=== PATIENT | female | born 1995 | race Caucasian/White ===

== ENCOUNTER 2022-03-02 01:11 | Emergency (ER) | payer MEDICAID, SELFPAY ==
[2022-03-02 01:12] VITALS: BP 113/87; PULSE 98; RESP 18; TEMP 36.2; O2SAT 100; BMI 32.5
[2022-03-02 01:14] VITALS: O2SAT 98
--- NOTE | 2022-03-02 01:22 | EX.ED.GENINJ ---
HPI History of Present Illness Chief Complaint: Fall Narrative Narrative: 26-year-old female here for left wrist pain. States she stumbled on her steps and caught herself with her left hand injuring her left wrist. States the pain is constant, severe without alleviating exacerbating features. PFSH PFSH Home Medications medroxyprogesterone 150 mg/mL intramuscular syringe 07/30/14 [History Last Taken Unknown] Allergy/AdvReac Type Severity Reaction Status Date / Time No Known Allergies Allergy Verified 03/02/22 01:12 Social History Smoking Status: Current every day smoker tobacco type: cigarettes ROS ROS ED Eyes Eyes: Denies other visual disturbances ENT ENT ED: Denies ear pain Cardiovascular Cardiovascular: Denies chest pain Respiratory/Chest Respiratory/Chest: Denies dyspnea Gastrointestinal Gastrointestinal: Denies abdominal pain Genitourinary Genitourinary ED: Denies dysuria Musculoskeletal Musculoskeletal: Reports arthralgias Integumentary Denies rash Neurologic Neurologic: Denies dizziness, focal weakness, numbness, syncope or weakness Psychiatric Psychiatric: Denies homicidal ideation or suicidal ideation EXAM Physical Exam Narrative Exam Narrative: Nursing triage notes reviewed, Vital signs reviewed Constitutional: please see mdm HENT: MMM Eyes: Pupils equal round and reactive to light, Extraocular muscles intact Neck: No stridor, no JVD, full neck ROM Lungs: Clear to auscultation, No wheezing or rales. No increased work of breathing, no conversational dyspnea, no accessory muscle use, no nasal flaring. No respiratory distress noted Heart: Regular rate and rhythm, No murmurs, No rubs and No gallops, 2+ distal pulses (radial, femoral, posterior tibial) in all extremities Abdomen: Soft, there is no tenderness, rigidity, rebound or guarding, no obvious peritoneal signs, no palpable pulsatile abdominal masses, no auscultated abdominal bruit : No CVAT Extremities: Left wrist with bruising noted to the ulnar aspect, intact pronation supination, intact emergency medical technician basic strength. No snuffbox tenderness. Neuro: Intact 5/5 strength with ok sign (median), intact finger abduction (ulnar) intact wrist extension (radial n). Intact sensation in the radial, ulnar, and median nerve distributions. Skin: No rash or lesions noted Const Vital Signs: 03/02/22 01:12 03/02/22 01:14 Temperature 97.2 F L Temperature Source Temporal Pulse Rate 98 Respiratory Rate 18 Respiratory Effort Non-Labored Respiratory Depth Normal Blood Pressure 113/87 H Blood Pressure Mean 95 Pulse Ox 100 98 Oxygen Delivery Method Room Air Room Air MDM MDM MDM Narrative Medical decision making narrative: 26-year-old female here with left wrist pain. No obvious deformity, left wrist neurovascular intact. Compartments are soft. Will obtain x-ray to rule out fracture or dislocation. Radiography Diagnostic Testing: Clinical Impression(s) from Imaging Studies Wrist X-Ray 03/02/22 02:00 IMPRESSION: Questionable nondisplaced fracture distal radial metaphysis versus normal variant. Correlate clinically. Electronically Signed: Faustino Garcias MD at 2:21 EDT Reading Location ID and State: [id number] / , Service support , Treatment and Re-Evaluation Narrative: 26-year-old female here with FOOSH mechanism left wrist injury. No history of prior injury, [id number]. Obtained x-ray to rule out fracture dislocation. X-ray showed questionable distal radial fracture versus normal variant. Patient no tenderness over distal radius but as precaution I put the patient in a splint and gave orthopedic follow-up. Discharge Plan Triage Chief Complaint: Fall ED Provider: Jamaal Marti Dx/Rx/DC Orders Clinical Impression: Contusion of left wrist Instructions: Bone Contusion Prescriptions: No Action medroxyprogesterone 150 MG/ML syringe Label Comments: Primary Care Provider: Care Physician,No Primary Referrals: Michael Doherty DO [Med Staff - Active Staff] - Care Physician,No Primary [Primary Care Provider] - Activity Restrictions/Additional Instructions: Please take [id number] Tylenol, ibuprofen as needed for further pain control. Disposition Disposition: Home, Self Care
--- NOTE | 2022-03-02 02:00 | RAD_ITS ---
STUDY: X-RAY - LEFT WRIST REASON FOR EXAM: Female, 26 years old. left wrist pain TECHNIQUE: 3 view(s) of the wrist were obtained. COMPARISON: None. FINDINGS: On the lateral view questionable deformity volar aspect of the distal radial metaphysis. Distal ulna is normal. Normal radiocarpal articulation. Normal distal radioulnar articulation. Normal carpal bones. Normal carpal articulations. Normal carpometacarpal articulation of the thumb. Normal second through fifth carpometacarpal articulations. Normal visualized metacarpal bones. The soft tissue structures are unremarkable. RAD/Wrist min 3 Views IMPRESSION: Questionable nondisplaced fracture distal radial metaphysis versus normal variant. Correlate clinically. Electronically Signed: Faustino Garcias MD at 2:21 EDT Reading Location ID and State: [id number] / , Service support ,
[2022-03-02 02:44] VITALS: BP 126/77; PULSE 77; RESP 15; O2SAT 99
== END 2022-03-02 02:54 | disposition home or self-care (01) ==
PROVIDERS: Emergency Provider Emergency Medicine; Visit Provider Emergency Medicine
DX: S60.212A Contusion of left wrist, initial encounter (principal); W23.0XXA Caught, crushed, jammed, or pinched between moving objects, initial encounter; F17.210 Nicotine dependence, cigarettes, uncomplicated
CPT/HCPCS: 73110; 99283

== ENCOUNTER 2023-01-28 17:50 | Inpatient (IN) | payer MEDICAID, SELFPAY ==
[2023-01-28] VITALS (12 sets, daily range): BP systolic 103–118; BP diastolic 55–68; PULSE 67–97; TEMP 35.9–36.9; BMI 35.0
[2023-01-28] MEDS: Lactated Ringers 1,000 ML 50 ML IV (18:08)
[2023-01-28 18:22] LABS: Absolute Lymphocyte Count 1.79 X10^3/uL (0.83-4.51); Absolute Neutrophil Count 12.8 X10^3/uL (2.0-7.7); Basophil# 0.08 X10^3/uL; Basophil% 0.5 % (0-1); Eosinophil# 0.06 X10^3/uL; Eosinophils% 0.4 % (0-5); Hematocrit 39.2 % (37-47); Hemoglobin 12.9 g/dL (12.0-15.0); Lymphocyte # 1.79 X10^3/ul (0.83-4.51); Lymphocyte % 11.4 % (19-41); Mean Corp Hgb Conc 32.9 g/dL (32-36); Mean Corpuscular Hgb 28.4 pg (27.0-32.0); Mean Corpuscular Volume 86.3 fL (81-99); Monocyte# 0.84 X10^3/uL; Monocyte% 5.4 % (0-10); NRBC Flagged by Analyzer 0 % (0-5); Neutrophil # 12.81 X10^3/uL (2.7-7.7); Neutrophil % 81.6 % (47-70); Platelet Count 271 K/mm3 (150-450); RBC Distribution Width CV 13.7 % (11.6-14.6); RBC Distribution Width SD 43.6 fl (35.1-43.9); Red Blood Count 4.54 M/mm3 (4.2-5.4); White Blood Count 15.7 K/mm3 (4.4-11.0)
[2023-01-28 18:49] LABS: Syphilis Antibodies Non-reactive
[2023-01-28] MEDS: Oxytocin 15 Units/NS 250ml 15 UNITS/250 ML IV.SOLN 83 UNITS IV (19:15)
[2023-01-28] MEDS: Oxytocin 10 UNITS/ML Vial IM (19:15)
--- NOTE | 2023-01-28 19:34 | HP.PCM.OB_ITS ---
HPI - General General Date of Admission: 01/28/23 HPI Narrative VARSHA MATHEWS, is a 27 F @ 38.5 weeks who presents c/o contractions- found to be 3cm- observation performed and was making cervical change. pt admitted for labor. Pt progressed from 4cm to 7cm and then complete within a short time period. [facility] Medical History (Updated 01/28/23 @ 19:[address] Leyda Muniz MD) Anemia affecting Asthma Home Medications medroxyprogesterone 150 mg/mL intramuscular syringe 07/30/14 [History Last Taken Unknown] Allergy/AdvReac Type Severity Reaction Status Date / Time No Known Allergies Allergy Verified 01/28/23 15:58 Social History Smoking Status: Current every day smoker tobacco type: cigarettes History Elective abortions Hx Para 1 Spontaneous abortions Hx # Term Pregnancies Ectopic pregnancies Hx # Pregnancies Multiple births # of living children Vital Signs Vital Signs Vital Signs: 01/28/23 15:53 01/28/23 15:53 01/28/23 15:52 Temperature Temperature Source Temporal Pulse Rate 70 Blood Pressure 118/59 L BP Systolic 118 BP Diastolic 59 01/28/23 15:52 01/28/23 18:22 01/28/23 18:22 Temperature 97.8 F Temperature Source Pulse Rate 67 Blood Pressure 115/56 L BP Systolic 115 BP Diastolic 56 01/28/23 18:32 01/28/23 18:32 01/28/23 19:30 Temperature 96.7 F L Temperature Source Temporal Pulse Rate Blood Pressure 118/68 BP Systolic 118 BP Diastolic 68 01/28/23 19:30 Temperature Temperature Source Pulse Rate 97 Blood Pressure BP Systolic BP Diastolic Weight Weight: 92.624 kg Body Mass Index (BMI) 35.0 Physical Exam Const alert and oriented x3 General Appearance: cooperative HEENT normocephalic GI GI Narrative: Gravid, non tender to palpation. OB / External & Speculum: external exam normal Extremity normal to inspection Skin no rashes or lesions noted Neuro oriented x3 and CN's II-XII intact bilaterally Psych Appearance: grossly normal Labs Labs Labs: Blood Type O POSITIVE Antibody Screen NEGATIVE Hct 39.2 % (37-47) Hgb 12.9 g/dL (12.0-15.0) Syphilis Total Ab Non-reactive Assessment & Plan (1) Anemia affecting : (2) 38 weeks gestation of : (3) History of asthma: PLAN: Plan Admit to L&D [facility] FHR/TOCO Epidural if requested for pain Monitor VS Anticipate
--- NOTE | 2023-01-28 19:37 | EX.PCM.OBRPT ---
Vaginal Delivery Maternal Presentation Maternal Presentation: Active Labor Operative Information Date of Procedure: 01/28/23 Pre-Operative Diagnosis: 38.5 weeks gestation, active labor, obesity in Post-Operative Diagnosis: same, live male Surgery / Procedure Performed: Spontaneous Vaginal Delivery Type of Anesthesia: None Estimated Blood Loss: 100 Time of Delivery: 19:10 Findings Description of Procedure: Progressed from 4 cm to 7 cm to complete. Unable to give her an epidural. At this time with good maternal pushing efforts she delivered the 's head nuchal cord was appreciated and this was reduced. At this time the anterior shoulder was not easily delivered. At this time Kylie maneuver was performed which did not release the anterior shoulder at this time suprapubic pressure was given from the patient's left side. Extra help was already in the room but at this time more staff was also called to the room for assistance and for delivery. This also did not relieve the anterior shoulder dystocia. At this time despite not having an epidural I reached in to try to deliver the posterior arm at this time I was not successful at delivering the posterior arm but I was able to maneuver the posterior arm anteriorly to create a little but more space and then at this time I went back anteriorly to maneuver the anterior shoulder and attempted to gently rotate the shoulders in a counterclockwise position. At this time the anterior shoulder was then released and the was delivered. The cord was immediately clamped and cut the infant was then handed to the awaiting resuscitation team. Cord gases were obtained. At this time IM and IV Pitocin were given. The vaginal and perineal tissue were evaluated and no lacerations were appreciated. Total minute for shoulder dystocia 1 minute 3 seconds. Presentation: Vertex Amniotic Membrane Rupture Type: Spontaneous Amniotic Fluid Description: Clear Placental Delivery Description: Spontaneous Placenta Disposition: [facility] Cord Vessel Description: 3 Vessels Cord Entanglement: Around neck x 1, loose Nuchal Cord Compression: Without compression Cord Gases: ABG and VBG A Gender: Male (1 minute): 2 (5 minute): 9 Delayed Cord Clamping: No Post Vaginal Delivery Medications Given After Delivery: IV Pitocin and IM Pitocin Episiotomy Description: None Laceration: None Complication Complications: - (Shoulder dystocia. See delivery note above.)
[2023-01-29 00:22] VITALS: BP 110/63; PULSE 78; RESP 16; TEMP 36.8; O2SAT 96
[2023-01-29 04:33] VITALS: BP 107/61; PULSE 70; RESP 16; TEMP 36.8; O2SAT 97
[2023-01-29 07:50] VITALS: BP 114/69; PULSE 79; RESP 16; TEMP 36.8; O2SAT 98
--- NOTE | 2023-01-29 08:13 | PN.OBGYN_ITS ---
Subjective Subjective Patient seen at bedside. Feeling good. Denies any pain. Ambulating and voiding without difficulty. Lochia decreasing. Objective Data Objective Data Vital Signs: Vital Signs Temp Pulse Resp BP Pulse Ox O2 Del Method 98.2 F 79 16 114/69 98 Room Air 01/29/23 07:50 01/29/23 07:50 01/29/23 07:50 01/29/23 07:50 01/29/23 07:50 01/29/23 07:50 Oxygen Delivery Method Room Air Weight: 204 lb 3.2 oz Body Mass Index (BMI) 35.0 Intake & Output: Intake and Output for Last 24 Hours 01/27/23 01/28/23 01/29/23 23:59 23:59 23:59 Intake Total 293.76 / 293.76 Output Total 100 / 100 900 / 900 Balance 193.76 / 193.76 -900 / -900 Lab / Micro Data 01/28/23 18:10 Labs: Laboratory Results - last 24 hr 01/28/23 18:10: WBC 15.7 H, RBC 4.54, Hgb 12.9, Hct 39.2, MCV 86.3, MCH 28.4, MCHC 32.9, RDW Std Deviation 43.6, RDW Coeff of Tiffanie 13.7, Plt Count 271, MPV 10.0, Immature Gran % (Auto) 0.700, Neut % (Auto) 81.6 H, Lymph % (Auto) 11.4 L, Perkins % (Auto) 5.4, Eos % (Auto) 0.4, Baso % (Auto) 0.5, Absolute Neuts (auto) 12.8 H, Absolute Lymphs (auto) 1.79, Nucleated RBC % 0, Syphilis Total Ab Non- reactive, Blood Type O POSITIVE, Antibody Screen NEGATIVE ROS Eyes Eyes: Denies blurry vision, change in vision or spots in vision ENT HEENT: Denies dizziness or headache(s) Cardiovascular Cardiovascular: Denies abdominal pain, chest pain or dyspnea Respiratory/Chest Respiratory/Chest: Denies cough, dyspnea, shortness of breath at rest or shortness of breath with exertion Gastrointestinal Gastrointestinal: Denies abdominal pain, diarrhea or vomiting Genitourinary Genitourinary: Denies change in urinary stream, difficulty urinating or dysuria Musculoskeletal Musculoskeletal: Reports none Integumentary Integumentary: Denies rash Neurologic Neurologic: Denies dizziness, headache(s), memory loss or weakness Physical Exam Const alert and no apparent distress General Appearance: cooperative and comfortable Exam Limitations: no limitations HEENT normocephalic Eyes General Eye: normal appearance of both eyes Neck full ROM General: normal visual inspection Chest Chest: symmetrical chest wall rise Resp normal respiratory effort and normal air movement Effort and Inspection: symmetric chest movement Auscultation: clear to auscultation bilaterally Cardio regular rate and regular rhythm GI normal to inspection, nondistended, normoactive bowel sounds Back/Spine normal ROM Extremity full ROM and no calf tenderness General Extremity: normal exam except as noted Skin no rashes or lesions noted Neuro CN's II-XII intact bilaterally Psych mental status grossly normal Assessment & Plan (1) (spontaneous vaginal delivery): (2) Anemia affecting : (3) History of asthma: PLAN: Plan PPD 1 - Shoulder dystocia Formula feeding Ambulating and voiding without difficulty Desires discharge home at 24 hours
--- NOTE | 2023-01-29 08:16 | DCINST_ITS ---
Discharge Instructions Diet Discharge Diet: No restrictions Activity May resume sexual activity in: 6-8 weeks Weight Bearing Status: Weight bearing as tolerated Dressing / Incision Call your doctor if you observe: Fever of 101 or Higher, Inability to urinate, Using more than 1 pad per hour, Shortness of breath, Chest pain, Calf discomfort and Uncontrolled pain Follow Up Care Please Follow Up With: Myriam Blanchard CNM When: 2 weeks virtual visit/ 6 weeks in office Test Results: Test results from this visit will be discussed in further detail at your follow- up appointment, if applicable. Discharge Plan Admission Admit Date/Time: 01/28/23 17:50 Primary Reason for Your Visit: Labor and Delivery Attending Provider: Leyda Muniz Primary Care Provider: Care Physician,Viviana Primary Discharge Orders/Prescriptions Prescriptions: Continued medroxyprogesterone 150 MG/ML syringe Patient Comments: Referrals / Follow Up: Care Physician,No Primary [Primary Care Provider] - Disposition Disposition (needs filled in before D/C Order can be placed): Home, Self Care
[2023-01-29 13:05] VITALS: BP 131/82; PULSE 69; RESP 16; O2SAT 99
[2023-01-29] MEDS: Senna/Docusate Sodium 1 Tablet PO (13:12)
[2023-01-29 18:00] VITALS: BP 121/81; PULSE 72; RESP 16; TEMP 36.7; O2SAT 98
[2023-01-29 20:27] VITALS: BP 112/81; PULSE 75; RESP 16; TEMP 36.8
== END 2023-01-29 20:45 | disposition home or self-care (01) | DRG 560 ==
LOC: WPOUT 17:55 → WP 17:55
PROVIDERS: Admitting Provider Obstetrics & Gynecology; Referring Provider Obstetrics & Gynecology; Visit Provider Obstetrics & Gynecology
DX: O69.2XX0 Labor and delivery complicated by other cord entanglement, with compression, not applicable or unspecified (principal); Z37.0 Single live birth; E66.8 Other obesity; D64.9 Anemia, unspecified; F17.210 Nicotine dependence, cigarettes, uncomplicated; O99.214 Obesity complicating childbirth; O99.334 Smoking (tobacco) complicating childbirth; Z3A.38 38 weeks gestation of pregnancy; O99.02 Anemia complicating childbirth
CPT/HCPCS: 59025; 59050; 85025; 86780; 86850; 86900; 86901; 99221; J7120; G0378